=== PATIENT | female | born 1960 | race Caucasian/White ===

== ENCOUNTER → 2016-09-02 | Outpatient (CLI) | payer BC ==
--- NOTE | 2016-09-02 14:55 | RADIOLOGY REPORT (SQ) ---
EXAM DESCRIPTION: CT ABD/PELVIS WITH IV ONLY COMPLETED DATE/TIME: 09/02/2016 2:39 pm REASON FOR STUDY: DEGENERATION OF FIBROIDS D25.9 LEIOMYOMA OF UTERUS, UNSPECIFIED COMPARISON: 02/01/2015 and 07/21/2013. TECHNIQUE: CT scan of the abdomen and pelvis performed using helical scanning technique with dynamic intravenous contrast injection. No oral contrast. Images reviewed with lung, soft tissue, and bone windows. Reconstructed coronal and sagittal MPR images reviewed. Delayed images for evaluation of the urinary system also acquired. All images stored on PACS. All CT scanners at this facility use dose modulation, iterative reconstruction, and/or weight based d osing when appropriate to reduce radiation dose to as low as reasonably achievable (ALARA). [facility]: Dose Right [facility]: CareDose [facility]: Dose Right [facility]: Teradose 4D [facility]: [employer] CONTRAST TYPE AND DOSE: contrast/concentration: Isovue 370.00 mg/ml; Total Contrast Delivered: 68.0 ml; Total Saline Delivered: 55.0 ml RENAL FUNCTION: I 0.1. RADIATION DOSE: Up-to-date CT equipment and radiation dose reduction techniques were employed. CTDIv ol: 3.9 - 4.4 mGy. DLP: 416 mGy-cm.. LIMITATIONS: None. FINDINGS: LOWER CHEST: No significant findings. No nodules or infiltrates. LIVER: Normal size. Stable hemangioma in the right lobe near the dome of the diaphragm. No dilated ducts. SPLEEN: Normal size. No focal lesions. PANCREAS: No masses. No significant calcifications. No adjacent inflammation or peripancreatic fluid collections. Pancreatic duct not dilated. GALLBLADDER: No identified stones by CT criteria. No inflammatory changes to suggest cholecystitis. ADRENAL GLANDS: No significant masses or asymmetry. RIGHT KIDNEY AND URETER: No solid masses. No significant calcifications. No hydronephrosis or hyd roureter. LEFT KIDNEY AND URETER: No solid masses. No significant calcifications. No hydronephrosis or hydr oureter. AORTA AND VESSELS: No aneurysm. No dissection. Renal arteries, SMA, celiac without stenosis. RETROPERITONEUM: No retroperitoneal adenopathy, hemorrhage or masses. BOWEL AND PERITONEAL CAVITY: No masses or inflammatory changes. No free fluid or peritoneal masses. APPENDIX: Normal. PELVIS: Markedly heterogenous and nodular uterus with multiple nodular masses with varying degrees of enhancement. No free fluid. Normal bladder. ABDOMINAL WALL: No masses. No hernias. BONES: No significant or acute findings. OTHER: No other significant finding. IMPRESSION: 1. FIBROID UTERUS. 2. STABLE HEMANGIOMA IN THE LIVER. 3. NO OTHER SIGNIFICANT OR ACUTE FINDING IN THE ABDOMEN OR PELVIS ON CT SCAN WITH IV CONTRAST. TECHNICAL DOCUMENTATION: JOB ID: [id number] Quality ID # 436: Final reports with documentation of one or more dose reduction techniques (e.g., Au tomated exposure control, adjustment of the mA and/or kV according to patient size, use of iterative reconstruction technique) 2010 [employer]- All Rights Reserved
--- NOTE | 2016-09-02 17:24 | RADIOLOGY REPORT (SQ) ---
EXAM DESCRIPTION: CT BONE LENGTH COMPLETED DATE/TIME: 09/02/2016 2:27 pm REASON FOR STUDY: LLD D25.9 LEIOMYOMA OF UTERUS, UNSPECIFIED COMPARISON: None. TECHNIQUE: CT scanogram of the bilateral lower extremities is performed including pelvis to ankles. Measurements of femur, tibia, and entire lower extremities performed by the radiologist and saved to PACS. All CT scanners at this facility use dose modulation, iterative reconstruction, and/or weight based d osing when appropriate to reduce radiation dose to as low as reasonably achievable (ALARA). [facility]: Dose Right [facility]: CareDose [facility]: Dose Right [facility]: Teradose 4D [facility]: [employer] RADIATION DOSE: mGy. LIMITATIONS: None. FINDINGS: RIGHT: FEMUR: 42.1 cm. TIBIA: 33.4 cm. TOTAL RIGHT LOWER EXTREMITY LENGTH: 75.5 cm. LEFT: FEMUR: 41.8 cm. TIBIA: 33.4 cm. TOTAL LEFT LOWER EXTREMITY LENGTH: 75.2 cm. IMPRESSION: LEG LENGTH MEASUREMENTS DETAILED ABOVE. TECHNICAL DOCUMENTATION: JOB ID: [id number] Quality ID # 436: Final reports with documentation of one or more dose reduction techniques (e.g., Au tomated exposure control, adjustment of the mA and/or kV according to patient size, use of iterative reconstruction technique) 2010 [employer]- All Rights Reserved
== END ==
LOC: RAD 13:26
PROVIDERS: ATTEND Specialist
DX: D25.9 Leiomyoma of uterus, unspecified (principal); Q72.819 Congenital shortening of unspecified lower limb
CPT/HCPCS: 74177; 77073; 82565

== ENCOUNTER → 2016-11-20 | Outpatient (CLI) | payer BC ==
[2016-11-20 13:50] LABS: ABSOLUTE BASOPHILS # (AUTO) 0.1 10^3/uL (0.0-0.2); ABSOLUTE EOSINOPHILS # (AUTO) 0.6 10^3/uL (0.0-0.6); ABSOLUTE LYMPHOCYTES (AUTO) 2.1 10^3/uL (0.5-4.7); ABSOLUTE MONOCYTES (AUTO) 0.6 10^3/uL (0.1-1.4); BASOPHILS % (AUTO) 0.9 % (0-2); EOSINOPHILS % (AUTO) 8.6 % (0-6); HEMATOCRIT 43.6 % (36.0-47.0); HEMOGLOBIN 14.5 g/dL (12.0-15.5); HGB HCT DIFFERENCE -0.1; LYMPHOCYTES % (AUTO) 28.4 % (13-45); MEAN CORPUSCULAR HEMOGLOBIN 33.2 pg (27.0-33.4); MEAN CORPUSCULAR HGB CONC 33.2 g/dL (32.0-36.0); MEAN CORPUSCULAR VOLUME 100 fl (80-97); MONOCYTES % (AUTO) 7.8 % (3-13); RED BLOOD COUNT 4.37 10^6/uL (3.72-5.28); RED CELL DISTRIBUTION WIDTH 13.8 % (11.5-14.0); SEGMENTED NEUTROPHILS % (AUTO) 54.3 % (42-78); WHITE BLOOD COUNT 7.4 10^3/uL (4.0-10.5)
[2016-11-20 14:09] LABS: ALANINE AMINOTRANSFERASE 43 U/L (9-52); ALBUMIN 4.8 g/dL (3.5-5.0); ALKALINE PHOSPHATASE 32 U/L (38-126); ANION GAP 15 (5-19); ASPARTATE AMINO TRANSFERASE 27 U/L (14-36); BILIRUBIN,DIRECT 0.5 mg/dL (0.0-0.4); BILIRUBIN,TOTAL 1.6 mg/dL (0.2-1.3); BLOOD UREA NITROGEN 17 mg/dL (7-20); CALCIUM 9.6 mg/dL (8.4-10.2); CARBON DIOXIDE 27 mmol/L (22-30); CHLORIDE 98 mmol/L (98-107); CREATININE RESULT 1.12 mg/dL (0.52-1.25); Direct HDL 72 mg/dL (>40); GLUCOSE 84 mg/dL (75-110); TOTAL PROTEIN 7.4 g/dL (6.3-8.2); TRIGLYCERIDES 98 mg/dL (<150)
[2016-11-20 14:20] LABS: DIRECT LDL 80 mg/dL (<100)
[2016-11-20 14:26] LABS: FREE T3 4.59 pg/mL (2.77-5.27)
[2016-11-20 14:40] LABS: THYROID STIMULATING HORMONE 0.36 uIU/mL (0.47-4.68)
[2016-11-22 06:40] LABS: DEHYDROEPIANDROSTERONE SULFATE 383.4 ug/dL (29.4-220.5)
[2016-11-22 07:19] LABS: ESTRADIOL 49.8 pg/mL (.); FOLLICLE STIMULATING HORMONE 27.9 mIU/mL (.); LUTEINIZING HORMONE 19.2 mIU/mL (.); PROGESTERONE 3.3 ng/mL (.)
[2016-11-22 08:17] LABS: INSULIN-LIKE GROWTH FACTOR I 176 ng/mL (46-172)
[2016-11-22 10:44] LABS: INSULIN 1.9 uIU/mL (2.6-24.9)
[2016-11-23 15:27] LABS: HOMOCYST(E)INE PLASMA 17.3 umol/L (0.0-15.0)
[2016-11-23 15:28] LABS: TESTOSTERONE FREE (DIRECT) 10.2 pg/mL (0.0-4.2)
== END ==
LOC: SC 12:40
PROVIDERS: ATTEND Surgery
DX: I10 Essential (primary) hypertension (principal); E34.9 Endocrine disorder, unspecified; E03.9 Hypothyroidism, unspecified; E78.5 Hyperlipidemia, unspecified; N20.0 Calculus of kidney; Z78.0 Asymptomatic menopausal state; M81.0 Age-related osteoporosis without current pathological fracture; E63.9 Nutritional deficiency, unspecified
CPT/HCPCS: 36415; 80053; 80061; 82306; 82533; 82627; 82670; 82728; 83001; 83002; 83036; 83090; 83525; 83735; 84144; 84270; 84305; 84402; 84403; 84439; 84443; 84481; 85025; 86141; 86304

== ENCOUNTER → 2017-02-12 | Outpatient (CLI) | payer BC ==
--- NOTE | 2017-02-13 12:06 | RADIOLOGY REPORT (SQ) ---
EXAM DESCRIPTION: MRI BREAST BILAT W AND/OR WO COMPLETED DATE/TIME: 02/12/2017 3:32 pm REASON FOR STUDY: LEFT BREAST CA (C50.912) C50.912 MALIGNANT NEOPLASM OF UNSPECIFIED SITE OF LEFT F EMAL Z85.820 PERSONAL HISTORY OF MALIGNANT MELANOMA OF SKIN COMPARISON: Mammography PATHOLOGIC CORRELATION: Prior melanoma. CONTRAST TYPE AND DOSE: 20 mL Prohance. RENAL FUNCTION: GFR 50 TECHNIQUE: MR imaging performed with a dedicated breast coil. Pre contrast T1 and T2 weighted images . Pre contrast and post contrast enhanced T1 weighted images with fat saturation. Subtraction images, 3D thick and thin MIPS, and kinetic analysis performed on an independent workstat ion. (Channel M workstation) Magnet strength: 1.5 T LIMITATIONS: None. FINDINGS: BREAST DENSITY: b. There are scattered areas of fibroglandular density. BACKGROUND PARENCHYMAL ENHANCEMENT:Minimal. RIGHT BREAST: No enhancing or suspicious masses. No clumped, regional/segmental ductal enhancement. Silicon implants. CHEST WALL: Normal tissue planes. No abnormal internal mammary nodes. AXILLA: Normal axillary and retro-pectoral nodes. LEFT BREAST:There is a regional area of enhancement upper outer quadrant 5.3 cm from the nipple corre sponding to the calcifications identified on mammography. No focal mass. CHEST WALL: Normal tissue planes. No abnormal internal mammary nodes. AXILLA: Normal axillary and retro-pectoral nodes. OTHER:Lesions in the liver representing either cysts or hemangiomas. IMPRESSION: Suspicious area of enhancement upper outer quadrant left breast corresponding to the are a of calcifications seen on mammography. Cyst/ hemangiomas of the liver. BIRAD: RIGHT BREAST: 1 Negative. LEFT BREAST: 4 Suspicious. Biopsy should be considered. RECOMMENDATION: RECOMMENDED FOLLOW-UP: Stereotactic guided vacuum assisted core biopsy of the calcif ications. Post clip placement MRI screen shot. TECHNICAL DOCUMENTATION: JOB ID: [id number]- All Rights Reserved
== END ==
LOC: RAD 13:42
PROVIDERS: ATTEND Surgery
DX: C50.412 Malignant neoplasm of upper-outer quadrant of left female breast (principal)
CPT/HCPCS: 82565; A9576; C8906; 77059

== ENCOUNTER 2017-02-28 07:21 | Day surgery (SDC) | payer BC ==
[2017-02-25 13:42] LABS: HEMATOCRIT 42.5 % (36.0-47.0); HEMOGLOBIN 14.4 g/dL (12.0-15.5); MEAN CORPUSCULAR HEMOGLOBIN 33.8 pg (27.0-33.4); MEAN CORPUSCULAR HGB CONC 33.9 g/dL (32.0-36.0); MEAN CORPUSCULAR VOLUME 100 fl (80-97); PLATELET COUNT 318 10^3/uL (150-450); RED BLOOD COUNT 4.27 10^6/uL (3.72-5.28); RED CELL DISTRIBUTION WIDTH 12.9 % (11.5-14.0); WHITE BLOOD COUNT 7.8 10^3/uL (4.0-10.5)
[2017-02-25 14:09] LABS: ANION GAP 8 (5-19); BLOOD UREA NITROGEN 14 mg/dL (7-20); CALCIUM 10.1 mg/dL (8.4-10.2); CARBON DIOXIDE 31 mmol/L (22-30); CHLORIDE 100 mmol/L (98-107); GLUCOSE 102 mg/dL (75-110); POTASSIUM 4.4 mmol/L (3.6-5.0); SODIUM 139.1 mmol/L (137-145)
--- NOTE | 2017-02-25 15:46 | RADIOLOGY REPORT (SQ) ---
EXAM DESCRIPTION: CHEST PA/LATERAL COMPLETED DATE/TIME: 02/25/2017 1:37 pm REASON FOR STUDY: PRE OP COMPARISON: 01/20/2013 EXAM PARAMETERS: NUMBER OF VIEWS: two views TECHNIQUE: Digital Frontal and Lateral radiographic views of the chest acquired. RADIATION DOSE: NA LIMITATIONS: none FINDINGS: LUNGS AND PLEURA: No opacities, masses or pneumothorax. No pleural effusion. MEDIASTINUM AND HILAR STRUCTURES: No masses or contour abnormalities. HEART AND VASCULAR STRUCTURES: Heart normal size. No evidence for failure. BONES: No acute findings. HARDWARE: None in the chest. OTHER: No other significant finding. IMPRESSION: NO SIGNIFICANT RADIOGRAPHIC FINDING IN THE CHEST. TECHNICAL DOCUMENTATION: JOB ID: [id number] [employer]- All Rights Reserved
--- NOTE | 2017-02-25 20:34 | EKG REPORT ---
SEVERITY:- NORMAL ECG - SINUS RHYTHM : Confirmed by: Unique Castro 25-Feb-2017 20:34:07
[~2017-02-28 07:21] MED LIST: CEFAZOLIN 1 GM/D5W RTU 1 GM/50 ML RTUPB IV PRN; LACTATED RINGERS 1000 ML IV PRN; LIDOCAINE 0.5% INJ-PF (5 MG/ML) 50 ML SDV SUBCUT PRN
[2017-02-28] MEDS ORDERED: LIDOCAINE 4% TRANSPARENT DRESSING 5 GM KIT TP PRN (07:24)
[2017-02-28] MEDS ORDERED: METHYLENE BLUE 50 MG/10 ML AMPULE ONE (07:32)
[2017-02-28] MEDS ORDERED: LIDOCAINE 1%/EPINEPHRINE INJ 20 ML VIAL ONE (07:32)
[2017-02-28] MEDS ORDERED: MICROFIBRILLAR COLLAGEN 1 GM PACK ONE (07:34)
[2017-02-28] MEDS ORDERED: MIDAZOLAM 2 MG/2 ML INJ ONE ×2 (07:35→09:17)
[2017-02-28] MEDS ORDERED: DIPHENHYDRAMINE HCL 50 MG/ML VIAL ONE (09:17)
[2017-02-28] MEDS ORDERED: KETOROLAC TROMETHAMINE 60 MG/2 ML SDV ONE (09:17)
[2017-02-28] MEDS ORDERED: DEXAMETHASONE SOD PHOSPHATE INJ 4 MG/1 ML VIAL ONE (09:17)
[2017-02-28] MEDS ORDERED: PROPOFOL INJ 200 MG/20 ML VIAL IV ONE (09:18)
[2017-02-28] MEDS ORDERED: ONDANSETRON HCL INJ/PF 4 MG/2 ML SDV ONE (09:18)
[2017-02-28] MEDS ORDERED: ACETAMINOPHEN 100 ML IV ONE (09:18)
[2017-02-28] MEDS ORDERED: HYDROMORPHONE HCL INJ/PF 2 MG/ML AMPULE ONE (09:18)
[2017-02-28] MEDS ORDERED: ALBUTEROL SULFATE 0.083% NEB 2.5 MG/3 ML AMPUL NEB ONE (09:25)
--- NOTE | 2017-02-28 10:00 | RADIOLOGY REPORT (SQ) ---
EXAM DESCRIPTION: NM LYMPHATICS/LYMPH GLANDS COMPLETED DATE/TIME: 02/28/2017 9:20 am REASON FOR STUDY: LEFT BREAST CANCER C50.912 MALIGNANT NEOPLASM OF UNSPECIFIED SITE OF LEFT FEMAL COMPARISON: MRI bilateral breasts 02/12/2017 Bilateral mammograms 02/05/2017 RADIONUCLIDE AND DOSE: 618 microcuries TC-99mtilmanocept - Lymphoseek. The route of agent administration: Subcutaneous in the skin. TECHNIQUE: The skin of the left breast was prepped in sterile fashion. The radiopharmaceutical was administered in equally divided doses in the periareolar breast. LIMITATIONS: None. FINDINGS: Images demonstrate activity at the injection site. There is migration of activity towards the left axilla. IMPRESSION: ADMINISTRATION OF RADIOPHARMACEUTICAL FOR SENTINEL LYMPH NODE EVALUATION. TECHNICAL DOCUMENTATION: JOB ID: [id number] [employer]- All Rights Reserved
[2017-02-28] MEDS ORDERED: MEPERIDINE HCL/PF INJ 25 MG/1 ML DISP.SYRIN IV PRN (11:19)
[2017-02-28] MEDS ORDERED: DIPHENHYDRAMINE HCL 50 MG/ML VIAL IV PRN (11:19)
[2017-02-28] MEDS ORDERED: OXYCODONE-ACETAMINOPHEN 5-325 MG TABLET PO PRN ×2 (11:19)
[2017-02-28] MEDS ORDERED: FENTANYL CITRATE INJ/PF 100 MCG/2 ML AMPUL IV PRN ×3 (11:19)
[2017-02-28] MEDS ORDERED: PROMETHAZINE HCL INJ 25 MG/1 ML VIAL IV PRN ×2 (11:19)
[2017-02-28] MEDS ORDERED: MORPHINE SULFATE 10 MG/ML INJ IV PRN ×2 (11:19→12:14)
--- NOTE | 2017-02-28 12:13 | PDOC DISCHARGE SUMMARY ---
Discharge Summary (SDC) - Discharge Final Diagnosis: DCIS left breast Date of Surgery: 02/28/17 Discharge Date: 02/28/17 Condition: Good Treatment or Instructions: Patient may shower; no strenuous physical activity; follow-up [facility] in 1 week. May take Tylenol, Motrin, pain medication as directed Referrals: QUYEN CUELLAR MD [Primary Care Provider] - Discharge Diet: As Tolerated Discharge Activity: No Lifting Over 10 Pounds, No Lifting/Push/Pulling Home Care Assistance: None Needed Report the Following to Your Physician Immediately: Shortness of Breath, Increase in Pain, Fever over 101 Degrees
[2017-02-28] MEDS ORDERED: RINGERS SOLUTION,LACTATED 1,000 ML IV PRN (12:14)
[2017-02-28] MEDS ORDERED: ONDANSETRON HCL INJ/PF 4 MG/2 ML SDV IV PRN (12:14)
--- NOTE | 2017-02-28 12:28 | Operative Report ---
Operative Report DATE OF SURGERY: 02/28/17 PREOPERATIVE DIAGNOSIS: Left breast DCIS, high-grade status post core biopsy with clip marker placement;. Bilateral silicone extra pectoral breast implants POSTOPERATIVE DIAGNOSIS: Same OPERATION: 1. [place] lymph node harvest left axilla, level 1,. 2. Ultrasound directed left breast lumpectomy. 3. Interpretation intraoperative specimen radiographs SURGEON: LENNOX GOODWIN ANESTHESIA: GA TISSUE REMOVED OR ALTERED: [place] lymph nodes 2; left breast lumpectomy principal specimen; superior lateral margin shave excision COMPLICATIONS: None ESTIMATED BLOOD LOSS: Scant INTRAOPERATIVE FINDINGS: See below PROCEDURE: The patient was seen in the preop holding area with the left breast was marked. She previously underwent lymphoscintigraphy by Dr. Galicia which demonstrated increased activity in the left axilla. The patient was then taken to the operating room where general anesthesia was induced by Dr. Poole. Left arm abducted. We proceeded with dual mapping technique by injecting approximately 1 cc of full-strength methylene blue intradermally in the left breast 2 o'clock position areolar border; left breast massaged. The left breast axilla chest wall were all prepped and draped in sterile fashion. Surgical plan and surgical timeout conducted We proceeded with sentinel lymph node biopsy first. Using the neoprobe as a guide, we identified an area of hot activity in the low axilla. Skin was anesthetized with 1% lidocaine plain, a small curvilinear incision was made in the low axilla. We proceeded to harvest 2 sentinel lymph nodes. The first was more cephalic , hot but not blue with an in vivo count of 5562; ex vivo count was 12,431. Second lymph node harvested was more caudad, and consisted of a allen more enlarged lymph node. It was blue and hot. It was excised, controlling for lymphatics with clips and cautery. Ex vivo count was 26,528. No in vivo count was performed. Background count was negligible at this point. We felt that the sentinel lymph node harvest portion of this operation was complete. We now rotated the patient into the left lateral decubitus position right side down. We scanned the left breast carefully with intraoperative ultrasonography starting the clip marker placement in the lateral aspect of the left breast, as well as the wide distribution of the heterogeneous group of microcalcifications. I marked on the skin the extent of the pathology is determined by the presence of microcalcifications. Discovered a vertical dimension of approximately 4 cm, and a transverse direction of approximately 3-1 /2 cm. My plan was to excise a saucer shaped portion of breast tissue. Skin was anesthetized with 1% plain lidocaine. Approximately 6 cm curvilinear incision was made approximately 7 cm from the nipple from the 2 to 4 o'clock position of the left breast. I now performed a lumpectomy with electrocautery, using my skin markings as a guide as well as intraoperative ultrasonography real -time confirming acquisition of the microcalcifications as well as hypoechoic nodular areas within the index lesion. No skin was removed during the resection. We took the level of dissection right down to the fibroareolar tissue covering her implant. We did not make direct contact with the implant however. There was no true pseudocapsule to the implant. Once the specimen was removed and the patient, a long silk sutures placed in the lateral position short suture in the superior position. Specimen radiographs real-time performed in the operating room confirmed the specimen contain a plethora of heterogeneous microcalcifications confined to the central aspect of the specimen , with clip marker in the center of the specimen. This interpretation was reviewed with Dr. Rao. For confirmatory purposes, I opted to perform a shave excision of the superior lateral margin of the initial lumpectomy cavity because there was a little nodular tissue here but not gritty. Furthermore there was minimal breast tissue for resection in terms of obtaining additional shave margins in the other patterns. And in terms of the deep posterior margin, there was none as I was looking directly at areole or tissue above the capsule. The small superior lateral margin approximately 2.5 x 2.5 cm removed in the left breast, oriented with a short suture in the superior position and a long suture in the lateral position. It was imaged in the operating room with a specimen radiograph machine and demonstrated no microcalcifications to our satisfaction. It is to be noted that prior to this operation, Jalen Hart, Claudia and Luke, radiologist and pathologists, conferenced about this specific patient, our operative approach, and the surgical specimen acquisition and interpretation. We agreed that a dominant lumpectomy for permanent margin interpretation would be the appropriate approach so this was executed as planned. The additional superior lateral shave margin was the choice of the surgeon. All 4 specimens, the sentinel lymph nodes 2, the lumpectomy specimen and the shave margin, were all sent to pathology for permanent analysis. Hemostasis was checked. Wounds closed with 3-0 Vicryl and Dermabond glue. Of note skin flaps on the lumpectomy specimen appeared viable although they were quite thin. Patient tolerated procedure well, extubated, taken to the recovery room in stable condition.
[2017-02-28] MEDS ORDERED: GLYCOPYRROLATE INJ 0.4 MG/2 ML VIAL ONE (14:21)
[2017-02-28] MEDS ORDERED: SUCCINYLCHOLINE CHLORIDE INJ 200 MG/10 ML VIAL ONE (14:21)
[2017-02-28] MEDS ORDERED: METOCLOPRAMIDE HCL INJ/PF 10 MG/2 ML SDV ONE (14:21)
[2017-02-28 14:57] VITALS: BP 115/60
--- NOTE | 2017-02-28 17:48 | RADIOLOGY REPORT (SQ) ---
EXAM DESCRIPTION: BREAST SPECIMEN COMPLETED DATE/TIME: 02/28/2017 12:29 pm REASON FOR STUDY: BREAST SPECIMEN C50.912 MALIGNANT NEOPLASM OF UNSPECIFIED SITE OF LEFT FEMAL COMPARISON: None. TECHNIQUE: Specimen radiograph from breast procedure performed in the operating room. LIMITATIONS: None. FINDINGS: Specimen radiograph from breast procedure performed in the operating room. Please see procedure note for details and final pathology. IMPRESSION: Specimen radiograph. TECHNICAL DOCUMENTATION: JOB ID: [id number]
== END 2017-02-28 15:00 | disposition home or self-care (01) ==
LOC: OROUT 07:21
PROVIDERS: ATTEND Surgery
PROC: 07B60ZX Excision of Left Axillary Lymphatic, Open Approach, Diagnostic (ICD-10-PCS; 2017-02-28)
PROC: 0HBU0ZZ Excision of Left Breast, Open Approach (ICD-10-PCS; principal; 2017-02-28 10:30)
DX: C50.812 Malignant neoplasm of overlapping sites of left female breast (principal); I10 Essential (primary) hypertension; E03.9 Hypothyroidism, unspecified; Z85.820 Personal history of malignant melanoma of skin; Z79.82 Long term (current) use of aspirin; Z79.899 Other long term (current) drug therapy; Z98.82 Breast implant status
CPT/HCPCS: 93005; 36415 ×2; 84132; 85027; 80048; 88342 ×2; 88341 ×2; 88307 ×2; 71046; 78195; 93010; 76098; 19301; 38500; A9520; J2250; J0690; J1100; J1200; J1885; J3490; J2765; J1170; J0330; J2405; J2704; J0131; Q9968; 1610

== ENCOUNTER 2017-04-07 11:08 | Day surgery (SDC) | payer BC ==
[2017-04-07] MEDS ORDERED: MIDAZOLAM 2 MG/2 ML INJ ONE (13:21)
[2017-04-07] MEDS ORDERED: ONDANSETRON HCL INJ/PF 4 MG/2 ML SDV ONE (13:22)
[2017-04-07 14:34] VITALS: BP 126/61
--- NOTE | 2017-04-07 14:50 | Operative Report ---
Operative Report DATE OF SURGERY: 04/07/17 Operative Report: The risks, benefits and alternatives of the procedure including risks of bleeding, perforation requiring surgery are explained to the patient in detail and informed consent was obtained. Patient is taken back to the endoscopy suite and placed in the left, lateral decubital position. Timeout was called. Propofol medications administered. A rectal examination is done which did not reveal any masses, tears or fissures. An Olympus videoscope was inserted into the patient's rectum. The scope was then carefully advanced all the way to the cecum. The cecum was identified by the usual anatomical landmarks including the ileocecal valve as well as the appendiceal office. Photodocumentation is obtained. Scope was then sequentially pulled back via the rest segments of the colon including the ascending colon, hepatic flexure, transverse colon, splenic flexure, descending colon finding to the rectosigmoid portions of the colon. Retroflexion maneuvers performed. PREOPERATIVE DIAGNOSIS: Colorectal cancer screening POSTOPERATIVE DIAGNOSIS: Small sessile polyp status post removal with biopsy forceps OPERATION: Colonoscopy with biopsy SURGEON: CLAY RICHARD ANESTHESIA: LMAC TISSUE REMOVED OR ALTERED: As noted above. COMPLICATIONS: None. ESTIMATED BLOOD LOSS: None. INTRAOPERATIVE FINDINGS: As noted above. PROCEDURE: Patient tolerated procedure well. No immediate postprocedure complications are noted. Patient discharged in good condition. Discharge date 04/07/2017. Discharge diet: Regular. Discharge activity: Regular. 2-3 week follow-up to discuss findings. Patient is instructed call the office or proceed to the emergency room should there be any further problems or questions. We will wait on pathology. We will need surveillance in 5 years.
== END 2017-04-07 15:00 | disposition home or self-care (01) ==
LOC: END 11:08
PROVIDERS: ATTEND Internal Medicine Gastroenterology
PROC: 0DBN8ZX Excision of Sigmoid Colon, Via Natural or Artificial Opening Endoscopic, Diagnostic (ICD-10-PCS; principal; 2017-04-07 14:30)
DX: Z12.11 Encounter for screening for malignant neoplasm of colon (principal); K63.5 Polyp of colon; K63.89 Other specified diseases of intestine; I10 Essential (primary) hypertension; Z85.820 Personal history of malignant melanoma of skin; Z85.3 Personal history of malignant neoplasm of breast
CPT/HCPCS: 45380; 88305 ×2; J2250; J2405; 812

== ENCOUNTER → 2017-09-08 | Outpatient (CLI) | payer BC ==
[2017-09-08 13:55] LABS: ABSOLUTE LYMPHOCYTES (AUTO) 1.4 10^3/uL (0.5-4.7); ABSOLUTE MONOCYTES (AUTO) 0.4 10^3/uL (0.1-1.4); ABSOLUTE NEUT (AUTO) 6.2 10^3/uL (1.7-8.2); BASOPHILS % (AUTO) 0.3 % (0-2); EOSINOPHILS % (AUTO) 0.1 % (0-6); HEMATOCRIT 42.8 % (36.0-47.0); HEMOGLOBIN 14.3 g/dL (12.0-15.5); LYMPHOCYTES % (AUTO) 17.3 % (13-45); MEAN CORPUSCULAR HEMOGLOBIN 31.9 pg (27.0-33.4); MEAN CORPUSCULAR HGB CONC 33.5 g/dL (32.0-36.0); MEAN CORPUSCULAR VOLUME 95 fl (80-97); MONOCYTES % (AUTO) 5.2 % (3-13); PLATELET COUNT 300 10^3/uL (150-450); RED CELL DISTRIBUTION WIDTH 13.2 % (11.5-14.0); SEGMENTED NEUTROPHILS % (AUTO) 77.1 % (42-78); TOTAL CELLS COUNTED % (AUTO) 100 %
[2017-09-08 14:28] LABS: ALANINE AMINOTRANSFERASE 26 U/L (9-52); ALBUMIN 4.5 g/dL (3.5-5.0); ALKALINE PHOSPHATASE 39 U/L (38-126); ANION GAP 10 (5-19); ASPARTATE AMINO TRANSFERASE 19 U/L (14-36); BILIRUBIN,DIRECT 0.3 mg/dL (0.0-0.4); BILIRUBIN,TOTAL 0.9 mg/dL (0.2-1.3); BLOOD UREA NITROGEN 21 mg/dL (7-20); CARBON DIOXIDE 28 mmol/L (22-30); CHLORIDE 102 mmol/L (98-107); CHOLESTEROL 203.87 mg/dL (0-200); GLUCOSE 99 mg/dL (75-110); POTASSIUM 4.4 mmol/L (3.6-5.0); SODIUM 139.9 mmol/L (137-145); TOTAL PROTEIN 7.4 g/dL (6.3-8.2); TRIGLYCERIDES 38 mg/dL (<150)
[2017-09-08 14:37] LABS: DIRECT LDL 117 mg/dL (<100)
[2017-09-08 14:42] LABS: FREE T3 5.83 pg/mL (2.77-5.27); FREE T4 (FREE THYROXINE) 1.24 ng/dL (0.78-2.19)
[2017-09-08 14:55] LABS: THYROID STIMULATING HORMONE 0.03 uIU/mL (0.47-4.68)
[2017-09-08 14:57] LABS: CARCINOEMBRYONIC ANTIGEN 2.3 ng/mL (<3.0); HOMOCYSTEINE 8.75 umol/L (4.7-12.6)
[2017-09-08 15:08] LABS: T3 UPTAKE 38.7 %; THYROXINE T4 6.75 ug/dL (5.53-11.0)
[2017-09-09 08:52] LABS: CANCER ANTIGEN (CA) 125 13.1 U/mL (0.0-38.1); DEHYDROEPIANDROSTERONE SULFATE 67.2 ug/dL (29.4-220.5)
[2017-09-09 08:53] LABS: INSULIN-LIKE GROWTH FACTOR I 172 ng/mL (46-172)
[2017-09-09 13:08] LABS: TESTOSTERONE FREE (DIRECT) 1.8 pg/mL (0.0-4.2)
== END ==
LOC: OD 12:54
PROVIDERS: ATTEND Surgery
DX: C50.919 Malignant neoplasm of unspecified site of unspecified female breast (principal); I10 Essential (primary) hypertension; N20.0 Calculus of kidney; J45.909 Unspecified asthma, uncomplicated; E78.5 Hyperlipidemia, unspecified; R79.89 Other specified abnormal findings of blood chemistry; Z78.0 Asymptomatic menopausal state
CPT/HCPCS: 36415; 80053; 80061; 82306; 82378; 82607; 82627; 82670; 82728; 83036; 83090; 83735; 84144; 84305; 84402; 84403; 84436; 84439; 84443; 84479; 84481; 85025; 86140; 86141; 86304

== ENCOUNTER → 2017-09-29 | Outpatient (CLI) | payer BC ==
--- NOTE | 2017-09-29 12:41 | RADIOLOGY REPORT (SQ) ---
EXAM DESCRIPTION: CHEST 2 VIEWS COMPLETED DATE/TIME: 09/29/2017 12:33 pm REASON FOR STUDY: UNSPECIFIED ASTHMA, UNCOMPLICATED/ESSENTIAL HTN COMPARISON: 01/20/2013 EXAM PARAMETERS: NUMBER OF VIEWS: two views TECHNIQUE: Digital Frontal and Lateral radiographic views of the chest acquired. RADIATION DOSE: NA LIMITATIONS: none FINDINGS: LUNGS AND PLEURA: No opacities, masses or pneumothorax. No pleural effusion. MEDIASTINUM AND HILAR STRUCTURES: No masses or contour abnormalities. HEART AND VASCULAR STRUCTURES: Heart normal size. No evidence for failure. BONES: No acute findings. HARDWARE: None in the chest. OTHER: No other significant finding. IMPRESSION: NO ACUTE RADIOGRAPHIC FINDING IN THE CHEST. TECHNICAL DOCUMENTATION: JOB ID: [id number] [employer]- All Rights Reserved Reading location - IP/workstation name: [email or web address]
--- NOTE | 2017-09-29 22:57 | EKG REPORT ---
SEVERITY:- ABNORMAL ECG - SINUS RHYTHM LEFT ATRIAL ABNORMALITY BORDERLINE T ABNORMALITIES, DIFFUSE LEADS : Confirmed by: Unique Castro 29-Sep-2017 22:56:39
== END ==
LOC: RAD 12:04
PROVIDERS: ATTEND Surgery
DX: C50.919 Malignant neoplasm of unspecified site of unspecified female breast (principal); I10 Essential (primary) hypertension; E78.5 Hyperlipidemia, unspecified; J45.909 Unspecified asthma, uncomplicated
CPT/HCPCS: 71046; 93005; 93010

== ENCOUNTER → 2017-12-03 | Outpatient (CLI) | payer BC ==
[2017-12-04 08:02] LABS: ABSOLUTE BASOPHILS # (AUTO) 0.1 10^3/uL (0.0-0.2); ABSOLUTE EOSINOPHILS # (AUTO) 0.4 10^3/uL (0.0-0.6); ABSOLUTE LYMPHOCYTES (AUTO) 2.4 10^3/uL (0.5-4.7); ABSOLUTE MONOCYTES (AUTO) 0.5 10^3/uL (0.1-1.4); ABSOLUTE NEUT (AUTO) 2.3 10^3/uL (1.7-8.2); BASOPHILS % (AUTO) 0.9 % (0-2); EOSINOPHILS % (AUTO) 7.1 % (0-6); HEMATOCRIT 40.9 % (36.0-47.0); HEMOGLOBIN 13.9 g/dL (12.0-15.5); MEAN CORPUSCULAR HEMOGLOBIN 32.6 pg (27.0-33.4); MEAN CORPUSCULAR VOLUME 96 fl (80-97); PLATELET COUNT 261 10^3/uL (150-450); RED BLOOD COUNT 4.27 10^6/uL (3.72-5.28); RED CELL DISTRIBUTION WIDTH 13.3 % (11.5-14.0); TOTAL CELLS COUNTED % (AUTO) 100 %; WHITE BLOOD COUNT 5.7 10^3/uL (4.0-10.5)
[2017-12-04 08:11] LABS: INTERNATIONAL RATION (INR) 0.96; PROTHROMBIN TIME 13.3 SEC (11.4-15.4)
[2017-12-04 08:12] LABS: PARTIAL THROMBOPLASTIN TIME 32.1 SEC (23.5-35.8)
[2017-12-04 08:26] LABS: ALANINE AMINOTRANSFERASE 23 U/L (9-52); ALBUMIN 3.9 g/dL (3.5-5.0); ALKALINE PHOSPHATASE 36 U/L (38-126); ANION GAP 7 (5-19); ASPARTATE AMINO TRANSFERASE 18 U/L (14-36); BILIRUBIN,DIRECT 0.2 mg/dL (0.0-0.4); BILIRUBIN,TOTAL 0.9 mg/dL (0.2-1.3); BLOOD UREA NITROGEN 18 mg/dL (7-20); CALCIUM 9.2 mg/dL (8.4-10.2); CARBON DIOXIDE 30 mmol/L (22-30); CHLORIDE 102 mmol/L (98-107); CHOLESTEROL 158.86 mg/dL (0-200); GLUCOSE 87 mg/dL (75-110); SODIUM 138.5 mmol/L (137-145); TOTAL PROTEIN 6.3 g/dL (6.3-8.2); TRIGLYCERIDES 53 mg/dL (<150)
[2017-12-04 08:35] LABS: DIRECT LDL 86 mg/dL (<100)
[2017-12-04 08:41] LABS: C-REACTIVE PROTEIN < 5.0 mg/L (<10.0)
[2017-12-04 08:48] LABS: FREE T3 4.33 pg/mL (2.77-5.27); FREE T4 (FREE THYROXINE) 0.99 ng/dL (0.78-2.19)
[2017-12-04 09:01] LABS: THYROID STIMULATING HORMONE 0.52 uIU/mL (0.47-4.68)
[2017-12-06 17:17] LABS: TESTOSTERONE FREE (DIRECT) 2.9 pg/mL (0.0-4.2)
== END ==
LOC: OD 13:57
PROVIDERS: ATTEND Surgery
DX: C50.919 Malignant neoplasm of unspecified site of unspecified female breast (principal); D05.12 Intraductal carcinoma in situ of left breast; Z85.820 Personal history of malignant melanoma of skin; I10 Essential (primary) hypertension; Z98.82 Breast implant status
CPT/HCPCS: 36415; 80053; 80061; 82306; 82627; 82670; 83036; 84144; 84305; 84402; 84403; 84439; 84443; 84481; 85025; 85610; 85730; 86140

== ENCOUNTER → 2018-01-07 | Outpatient (CLI) | payer BC ==
--- NOTE | 2018-01-07 15:40 | RADIOLOGY REPORT (SQ) ---
EXAM DESCRIPTION: CT ABD/PELVIS COMBO COMPLETED DATE/TIME: 01/07/2018 3:20 pm REASON FOR STUDY: N20.0 CALCULUS OF KIDNEY N20.0 CALCULUS OF KIDNEY COMPARISON: CT abdomen pelvis 07/21/2013, 01/28/2014, 02/01/2015, 09/02/2016 TECHNIQUE: CT scan of the abdomen and pelvis performed with and without intravenous contrast, and wi thout oral contrast. Contrasted imaging performed helical scanning technique and dynamic intravenous contrast injection. Images reviewed with lung, soft tissue, and bone windows. Reconstructed coronal a nd sagittal MPR images reviewed. Delayed images for evaluation of the urinary system also acquired. A ll images stored on PACS. All CT scanners at this facility use dose modulation, iterative reconstruction, and/or weight based d osing when appropriate to reduce radiation dose to as low as reasonably achievable (ALARA). [facility]: Dose Right [facility]: CareDose [facility]: Dose Right [facility]: Teradose 4D [facility]: [facility] CONTRAST TYPE AND DOSE: contrast/concentration: Isovue 350.00 mg/ml; Total Contrast Delivered: 66.0 ml; Total Saline Delivered: 65.0 ml RENAL FUNCTION: Creatinine 1.3 RADIATION DOSE: CT Rad equipment meets quality standard of care and radiation dose reduction techniq ues were employed. CTDIvol: 9.0 - 9.0 mGy. DLP: 1360 mGy-cm. . LIMITATIONS: None. FINDINGS: NON-CONTRASTED IMAGING: Along the left lower pole calices, axial images 36-38, multiple ti ny intrarenal nonobstructive calculi are present less than 4 mm in size. These are unchanged from CT 02/01/2015. Patient had a lower pole staghorn calculus in this area on 01/28/2014 CT. No left ureteral stones are identified. No right-sided urinary stones. No bladder calculi. POST-CONTRASTED IMAGING: LOWER CHEST: Bilateral mastectomies with implants. LIVER: Normal size. Stable benign 2 cm hemangioma sub- diaphragmatic surface right lobe liver, 1 cm hemangioma posterior right lobe liver. No dilated ducts. SPLEEN: Normal size. No focal lesions. PANCREAS: No masses. No significant calcifications. No adjacent inflammation or peripancreatic fluid collections. Pancreatic duct not dilated. GALLBLADDER: 4 mm gallbladder polyp versus noncalcified stone, coronal image 23. Right upper quadran t ultrasound recommended for further characterization ADRENAL GLANDS: No significant masses or asymmetry. RIGHT KIDNEY AND URETER: No solid masses. No significant calcifications. No hydronephrosis or hyd roureter. LEFT KIDNEY AND URETER: No solid masses. Calcifications left lower pole, less than 4 mm in size, no nobstructive. No left ureteral stones. No hydronephrosis or hydroureter. AORTA AND VESSELS: No aneurysm. No dissection. Renal arteries, SMA, celiac without stenosis. RETROPERITONEUM: No retroperitoneal adenopathy, hemorrhage or masses. BOWEL AND PERITONEAL CAVITY: No masses or inflammatory changes. No free fluid or peritoneal masses. APPENDIX: Normal. PELVIS: No mass. No free fluid. Normal bladder. Normal size female pelvic organs with small 1 to 2 cm fibroids in the uterus ABDOMINAL WALL: No masses. No hernias. BONES: Degenerative disc changes at L2-3 OTHER: No other significant finding. IMPRESSION: Left-sided lower pole intrarenal nonobstructive less than 4 mm stones. No left-sided ur eteral calculi. Incidental finding of a 4 mm filling defect in the gallbladder, could represent a small polyp. Right upper quadrant ultrasound recommended. TECHNICAL DOCUMENTATION: JOB ID: [id number] Quality ID # [id number]: Final reports with documentation of one or more dose reduction techniques (e.g., Au tomated exposure control, adjustment of the mA and/or kV according to patient size, use of iterative reconstruction technique) 2010 [employer]- All Rights Reserved Reading location - IP/workstation name: [email or web address]
== END ==
LOC: RAD 16:06
PROVIDERS: ATTEND Physician Assistant
DX: N20.0 Calculus of kidney (principal)
CPT/HCPCS: 74178; 82565

== ENCOUNTER 2018-06-01 10:34 | Day surgery (SDC) | payer BC ==
[~2018-06-01 10:34] MED LIST changes: -CEFAZOLIN 1 GM/D5W RTU 1 GM/50 ML RTUPB IV PRN; -LACTATED RINGERS 1000 ML IV PRN; -LIDOCAINE 0.5% INJ-PF (5 MG/ML) 50 ML SDV SUBCUT PRN; +PROPOFOL INJ 200 MG/20 ML VIAL IV ONE
[2018-06-01] MEDS ORDERED: MIDAZOLAM 2 MG/2 ML INJ ONE (11:41)
[2018-06-01] MEDS ORDERED: PROPOFOL INJ 200 MG/20 ML VIAL IV ONE (12:22)
--- NOTE | 2018-06-01 12:41 | Operative Report ---
Operative Report DATE OF SURGERY: 06/01/18 Operative Report: The risks, benefits and alternatives of the procedure including the risk of bleeding, perforation requiring surgery have been explained to the patient in detail and informed consent has been obtained. Patient was taken back to the endoscopy suite and placed in the left, lateral decubital position. Timeout was called. Propofol medication is administered. A rectal examination is done which did not reveal any masses, tears or fissures. An Olympus videoscope was introduced into the patient's rectum. Upon insufflation the scope was then carefully advanced all the way to the cecum. The cecum was identified by the usual anatomical landmarks including the ileocecal valve as well as the appendiceal office. Photodocumentation is obtained. The prep was good. From that point the scope was then sequentially pulled back through the various segments of the colon obtaining good luminal and circumferential views. The ascending colon, hepatic flexure, transverse colon, splenic flexure, descending colon including the rectosigmoid portions are visualized. Retroflexion maneuver was performed. PREOPERATIVE DIAGNOSIS: Personal history of polyp POSTOPERATIVE DIAGNOSIS: Small sigmoid polyp removed via snare polypectomy and retrieved OPERATION: Colonoscopy with snare polypectomy SURGEON: CLAY RICHARD ANESTHESIA: LMAC TISSUE REMOVED OR ALTERED: As noted above. COMPLICATIONS: None. ESTIMATED BLOOD LOSS: None. INTRAOPERATIVE FINDINGS: As noted above. PROCEDURE: Patient tolerated the procedure well. No immediate postprocedure complications are noted. Patient is discharged in good condition. Discharge date 06/01/2018. Discharge diet: Regular. Discharge activity: Regular. 2-3-week follow-up to discuss findings. Patient is instructed to call the office or proceed to the emergency room should there be any further problems or questions. Wait on the pathology. 3-5-year surveillance colonoscopy.
[2018-06-01 13:28] VITALS: BP 115/60
== END 2018-06-01 13:00 | disposition home or self-care (01) ==
LOC: END 10:34
PROVIDERS: ATTEND Internal Medicine Gastroenterology
PROC: 0DBN8ZX Excision of Sigmoid Colon, Via Natural or Artificial Opening Endoscopic, Diagnostic (ICD-10-PCS; principal; 2018-06-01 15:00)
DX: Z12.11 Encounter for screening for malignant neoplasm of colon (principal); K63.5 Polyp of colon; Z86.010 Personal history of colon polyps
CPT/HCPCS: 45385; 811; 88305; J2250; J2704

== ENCOUNTER → 2018-09-02 | Outpatient (CLI) | payer BC ==
[~2018-09-02] MED LIST changes: +ALBUTEROL SULFATE 0.083% NEB 2.5 MG/3 ML AMPUL NEB ONE; -PROPOFOL INJ 200 MG/20 ML VIAL IV ONE
--- NOTE | 2018-09-03 15:26 | Pulmonary Function Test ---
Pulmonary Function Test Date of Procedure:: 09/02/18 INDICATION:: Dyspnea Referring Provider: JERROD Armando Hourly Associate: Clover Cook [employer] - Report Spirometry: Spirometry: pre-FVC: 2.91 L 93% post-FVC 2.94 L 94% pre-FEV:1[1.80 L 72%] post-FEV1; 2.00 L 80% pre-FEV1/FVC % 62 post-FEV1/FVC% 68 predicted 83 [id number]% 0.82 L percent [id number]% 1.16 L 43% Lung Volume: Total lung capacity: 4.29 L 84% Vital capacity: 2.91 L 93% Inspiratory capacity: 2.51 L FRC N2: 1.78 L 60% ERV: 0.23 L RV: 1.38 L 72% RV/TLC %: 32 predicted 38 Diffusion Capactity: DLCO: 20.2 102% DLCO/VA: 4.33 112% Impression: Moderate obstructive ventilatory defect good response to bronchodilator therapy. Strict ventilatory defect. No hyperinflation or air trapping. Normal diff usion capacity.
== END ==
LOC: RT 13:44
PROVIDERS: ATTEND Physician Assistant
DX: J45.30 Mild persistent asthma, uncomplicated (principal); I10 Essential (primary) hypertension; R06.09 Other forms of dyspnea
CPT/HCPCS: 94060; 94727; 94729

== ENCOUNTER → 2018-09-09 | Outpatient (CLI) | payer BC ==
--- NOTE | 2018-09-09 22:42 | XCELERA REPORT ---
[address] [address] Transthoracic Echocardiogram Report Name: RADHA POTTER Age: 58 yrs Gender: Female : 1960 Patient Status: Outpatient Patient Location: Study Date: 09/09/2018 01:14 PM Height: 65 in Weight: 140 lb BSA: 1.7 m2 Procedure: A two-dimensional transthoracic echocardiogram with color flow and Doppler was performed. The study was technically difficult with many images being suboptimal in quality. Reason For Study: History: AORTIC STENOSI. Ordering Physician: MALIHA MUIR Performed By: Kassandra Calzada Interpretation Summary The left ventricle is normal in size. There is normal left ventricular wall thickness. LV EF is 65% The left ventricular ejection fraction is within normal limits. Doppler measurements suggest normal left ventricular diastolic function The left ventricular wall motion is normal. No ASD , VSD,or PFO seen. The right ventricle is normal in size and function. The right atrium is normal. The left atrial size is normal. There is no evidence of mitral valve prolapse. There is no vegetation seen on the mitral valve. There is no mitral valve stenosis. There is no mitral regurgitation noted. There is no aortic valvular vegetation. There is no aortic valve stenosis There is no LVOT obstruction. Minimal aortoc sclerosis without stenosis. No aortic regurgitation is present. There is no tricuspid stenosis. There is a trace amount of tricuspid regurgitation Unable to calculate RVSP due to insufficient TR jet. There is no pulmonic valvular stenosis. There is a trace amount of pulmonic regurgitation The aortic root is normal size. The inferior vena cava appeared normal and decreased > 50% with respiration (RAP 5-10 mmHg) There is no pericardial effusion. MMode/2D Measurements & Calculations RVDd: 2.6 cm LVIDd: 4.7 cm FS: 32.9 % Ao root diam: 2.5 cm IVSd: 0.66 cm LVIDs: 3.2 cm EDV(Teich): 103.6 ml Ao root area: 4.9 cm2 LVPWd: 0.84 cm ESV(Teich): 40.0 ml EF(Teich): 61.4 % Doppler Measurements & Calculations MV E max carolyn: MV dec slope: Ao V2 max: LV V1 max P.7 cm/sec 545.2 cm/sec2 130.2 cm/sec 4.0 mmHg MV A max carolyn: MV dec time: 0.16 secAo max PG: LV V1 max: 81.9 cm/sec 6.8 mmHg 99.7 cm/sec MV E/A: 1.1 PA V2 max: PI end-d carolyn: 79.6 cm/sec 83.8 cm/sec PA max P.5 mmHg Left Ventricle The left ventricle is normal in size. There is normal left ventricular wall thickness. LV EF is 65%. The left ventricular ejection fraction is within normal limits. Doppler measurements suggest normal left ventricular diastolic function. The left ventricular wall motion is normal. No ASD , VSD,or PFO seen. Right Ventricle The right ventricle is normal in size and function. Atria The right atrium is normal. The left atrial size is normal. Mitral Valve There is no evidence of mitral valve prolapse. There is no vegetation seen on the mitral valve. There is no mitral valve stenosis. There is no mitral regurgitation noted. Aortic Valve There is no aortic valvular vegetation. There is no aortic valve stenosis. There is no LVOT obstruction. Minimal aortoc sclerosis without stenosis. No aortic regurgitation is present. Tricuspid Valve There is no tricuspid stenosis. There is a trace amount of tricuspid regurgitation. Unable to calculate RVSP due to insufficient TR jet. Pulmonic Valve There is no pulmonic valvular stenosis. There is a trace amount of pulmonic regurgitation. Great Vessels The aortic root is normal size. The inferior vena cava appeared normal and decreased > 50% with respiration (RAP 5-10 mmHg). Effusions There is no pericardial effusion. : MALIHA MUIR > Katherine Gardiner
== END ==
LOC: SP 12:53
PROVIDERS: ATTEND Physician Assistant
DX: J45.30 Mild persistent asthma, uncomplicated (principal); I35.0 Nonrheumatic aortic (valve) stenosis
CPT/HCPCS: 93306

== ENCOUNTER → 2018-11-25 | Outpatient (CLI) | payer BC ==
[2018-11-25 15:12] LABS: ALBUMIN 4.4 g/dL (3.5-5.0); ALKALINE PHOSPHATASE 37 U/L (38-126); ANION GAP 8 (5-19); ASPARTATE AMINO TRANSFERASE 33 U/L (14-36); BILIRUBIN,DIRECT 0.1 mg/dL (0.0-0.4); BLOOD UREA NITROGEN 19 mg/dL (7-20); CALCIUM 9.8 mg/dL (8.4-10.2); CARBON DIOXIDE 30 mmol/L (22-30); CHLORIDE 97 mmol/L (98-107); CHOLESTEROL 190.78 mg/dL (0-200); GLUCOSE 98 mg/dL (75-110); POTASSIUM 4.3 mmol/L (3.6-5.0); TOTAL PROTEIN 7.1 g/dL (6.3-8.2); TRIGLYCERIDES 53 mg/dL (<150)
[2018-11-25 15:16] LABS: HOMOCYSTEINE 14.83 umol/L (4.7-12.6)
[2018-11-25 15:20] LABS: DIRECT LDL 120 mg/dL (<100)
[2018-11-25 15:25] LABS: FREE T3 5.23 pg/mL (2.77-5.27); FREE T4 (FREE THYROXINE) 1.13 ng/dL (0.78-2.19)
[2018-11-25 15:26] LABS: C-REACTIVE PROTEIN < 5.0 mg/L (<10.0)
[2018-11-25 15:38] LABS: THYROID STIMULATING HORMONE 0.08 uIU/mL (0.47-4.68)
== END ==
LOC: OD 13:38
PROVIDERS: ATTEND Physician Assistant
DX: E78.2 Mixed hyperlipidemia (principal); N95.1 Menopausal and female climacteric states; E55.9 Vitamin D deficiency, unspecified; R94.5 Abnormal results of liver function studies; Z79.899 Other long term (current) drug therapy
CPT/HCPCS: 36415; 80053; 80061; 82172; 82306; 82627; 82670; 83036; 83090; 83525; 84144; 84305; 84402; 84403; 84439; 84443; 84481; 86140

== ENCOUNTER → 2018-12-10 | Outpatient (CLI) | payer BC ==
[2018-12-10 16:53] LABS: HEMOGLOBIN 14.5 g/dL (12.0-15.5); MEAN CORPUSCULAR HEMOGLOBIN 33.9 pg (27.0-33.4); MEAN CORPUSCULAR HGB CONC 34.5 g/dL (32.0-36.0); MEAN CORPUSCULAR VOLUME 98 fl (80-97); PLATELET COUNT 300 10^3/uL (150-450); RED BLOOD COUNT 4.27 10^6/uL (3.72-5.28); RED CELL DISTRIBUTION WIDTH 13.7 % (11.5-14.0); WHITE BLOOD COUNT 6.6 10^3/uL (4.0-10.5)
== END ==
LOC: OD 15:38
PROVIDERS: ATTEND Internal Medicine Cardiovascular Disease
DX: E78.00 Pure hypercholesterolemia, unspecified (principal); R53.83 Other fatigue; Z11.3 Encounter for screening for infections with a predominantly sexual mode of transmission
CPT/HCPCS: 36415; 82627; 83695; 84305; 86701

== ENCOUNTER → 2019-04-13 | Outpatient (CLI) | payer BC ==
[2019-04-13 15:47] LABS: ABSOLUTE EOSINOPHILS # (AUTO) 0.4 10^3/uL (0.0-0.6); ABSOLUTE LYMPHOCYTES (AUTO) 1.8 10^3/uL (0.5-4.7); ABSOLUTE MONOCYTES (AUTO) 0.5 10^3/uL (0.1-1.4); ABSOLUTE NEUT (AUTO) 2.7 10^3/uL (1.7-8.2); BASOPHILS % (AUTO) 0.9 % (0-2); EOSINOPHILS % (AUTO) 7.2 % (0-6); HEMATOCRIT 41.3 % (36.0-47.0); HEMOGLOBIN 14.5 g/dL (12.0-15.5); LYMPHOCYTES % (AUTO) 33.8 % (13-45); MEAN CORPUSCULAR HEMOGLOBIN 34.7 pg (27.0-33.4); MEAN CORPUSCULAR HGB CONC 35.2 g/dL (32.0-36.0); MEAN CORPUSCULAR VOLUME 99 fl (80-97); MONOCYTES % (AUTO) 8.6 % (3-13); PLATELET COUNT 227 10^3/uL (150-450); RED BLOOD COUNT 4.18 10^6/uL (3.72-5.28); RED CELL DISTRIBUTION WIDTH 14.1 % (11.5-14.0); SEGMENTED NEUTROPHILS % (AUTO) 49.5 % (42-78); TOTAL CELLS COUNTED % (AUTO) 100 %; WHITE BLOOD COUNT 5.4 10^3/uL (4.0-10.5)
[2019-04-13 16:09] LABS: ALBUMIN 4.4 g/dL (3.5-5.0); ALKALINE PHOSPHATASE 34 U/L (38-126); ANION GAP 8 (5-19); ASPARTATE AMINO TRANSFERASE 31 U/L (14-36); BILIRUBIN,DIRECT 0.1 mg/dL (0.0-0.4); BILIRUBIN,TOTAL 1.6 mg/dL (0.2-1.3); BLOOD UREA NITROGEN 18 mg/dL (7-20); CALCIUM 9.7 mg/dL (8.4-10.2); CARBON DIOXIDE 28 mmol/L (22-30); CHLORIDE 98 mmol/L (98-107); CHOLESTEROL 194.99 mg/dL (0-200); GLUCOSE 104 mg/dL (75-110); POTASSIUM 4.5 mmol/L (3.6-5.0); TRIGLYCERIDES 91 mg/dL (<150)
[2019-04-13 16:17] LABS: DIRECT LDL 138 mg/dL (<100)
[2019-04-13 16:22] LABS: FREE T3 3.79 pg/mL (2.77-5.27)
[2019-04-13 16:24] LABS: C-REACTIVE PROTEIN < 5.0 mg/L (<10.0)
[2019-04-13 16:36] LABS: THYROID STIMULATING HORMONE 1.1 uIU/mL (0.47-4.68)
== END ==
LOC: OD 15:07
PROVIDERS: ATTEND Physician Assistant
DX: N95.1 Menopausal and female climacteric states (principal); Z79.899 Other long term (current) drug therapy; R94.6 Abnormal results of thyroid function studies; E72.11 Homocystinuria; E78.2 Mixed hyperlipidemia
CPT/HCPCS: 36415; 80053; 80061; 82306; 82626; 82670; 83090; 84402; 84403; 84443; 84481; 85025; 86140

== ENCOUNTER → 2020-01-24 | Outpatient (CLI) | payer BC ==
[2020-01-24 09:53] LABS: ABSOLUTE BASOPHILS # (AUTO) 0.1 10^3/uL (0.0-0.2); ABSOLUTE EOSINOPHILS # (AUTO) 0.6 10^3/uL (0.0-0.6); ABSOLUTE LYMPHOCYTES (AUTO) 1.6 10^3/uL (0.5-4.7); ABSOLUTE MONOCYTES (AUTO) 0.6 10^3/uL (0.1-1.4); ABSOLUTE NEUT (AUTO) 4.6 10^3/uL (1.7-8.2); BASOPHILS % (AUTO) 0.8 % (0-2); EOSINOPHILS % (AUTO) 7.8 % (0-6); HEMOGLOBIN 13.9 g/dL (12.0-15.5); MEAN CORPUSCULAR HEMOGLOBIN 32.9 pg (27.0-33.4); MEAN CORPUSCULAR VOLUME 97 fl (80-97); MONOCYTES % (AUTO) 7.7 % (3-13); PLATELET COUNT 217 10^3/uL (150-450); RED BLOOD COUNT 4.23 10^6/uL (3.72-5.28); RED CELL DISTRIBUTION WIDTH 13.7 % (11.5-14.0); SEGMENTED NEUTROPHILS % (AUTO) 61.7 % (42-78); TOTAL CELLS COUNTED % (AUTO) 100 %; WHITE BLOOD COUNT 7.4 10^3/uL (4.0-10.5)
[2020-01-24 10:37] LABS: ALKALINE PHOSPHATASE 41 U/L (38-126); ANION GAP 5 (5-19); ASPARTATE AMINO TRANSFERASE 30 U/L (14-36); BILIRUBIN,DIRECT 0.1 mg/dL (0.0-0.4); BILIRUBIN,TOTAL 0.9 mg/dL (0.2-1.3); BLOOD UREA NITROGEN 29 mg/dL (7-20); C-REACTIVE PROTEIN 21.4 mg/L (<10.0); CALCIUM 9.5 mg/dL (8.4-10.2); CARBON DIOXIDE 30 mmol/L (22-30); CHLORIDE 102 mmol/L (98-107); FREE T3 4.35 pg/mL (2.77-5.27); GLUCOSE 104 mg/dL (75-110); POTASSIUM 4.5 mmol/L (3.6-5.0); TOTAL PROTEIN 6.9 g/dL (6.3-8.2); TRIGLYCERIDES 81 mg/dL (<150)
[2020-01-24 10:39] LABS: FREE T4 (FREE THYROXINE) 1.21 ng/dL (0.78-2.19)
[2020-01-24 10:46] LABS: DIRECT LDL 109 mg/dL (<100)
[2020-01-24 10:51] LABS: THYROID STIMULATING HORMONE 1.65 uIU/mL (0.47-4.68)
[2020-01-25 08:48] LABS: INSULIN-LIKE GROWTH FACTOR I 97 ng/mL (57-202)
== END ==
LOC: OD 08:40
PROVIDERS: ATTEND Physician Assistant
DX: R94.6 Abnormal results of thyroid function studies (principal); N95.1 Menopausal and female climacteric states; E78.2 Mixed hyperlipidemia; E55.9 Vitamin D deficiency, unspecified; E72.11 Homocystinuria; D50.9 Iron deficiency anemia, unspecified
CPT/HCPCS: 36415; 80053; 80061; 82306; 82627; 82670; 82728; 83090; 84144; 84270; 84305; 84402; 84439; 84443; 84481; 85025; 86140; 86141

== ENCOUNTER 2020-01-26 09:41 | Day surgery (SDC) | payer BC ==
[~2020-01-26 09:41] MED LIST changes: -ALBUTEROL SULFATE 0.083% NEB 2.5 MG/3 ML AMPUL NEB ONE; +PROPOFOL INJ 200 MG/20 ML VIAL IV ONE
[2020-01-26] MEDS ORDERED: LIDOCAINE 2% INJ-PF (20 MG/ML) 10 ML AMPUL ONE (10:44)
[2020-01-26] MEDS ORDERED: LIDOCAINE 1% INJ-PF (10 MG/ML) 30 ML SDV ONE (10:44)
--- NOTE | 2020-01-26 11:29 | Operative Report ---
Operative Report DATE OF SURGERY: 01/26/20 Operative Report: The risk, benefits and alternatives of the procedure including the risk of bleeding, perforation requiring surgery were explained to the patient in detail and informed consent has been obtained. Patient is taken back to the endoscopy suite placed in left, lateral decubital position. Timeout was called. Propofol medication is administered. Rectal examination is done which did not reveal any masses, tears or fissures. An Olympus videoscope was introduced into the patient's rectum. Scope was then carefully advanced all the way to the cecum. The cecum was identified by the usual anatomical landmarks including the ileocecal valve as well as the appendiceal office. Photodocumentation is obtained. Scope is then sequentially pulled back via the various segments of the colon including the ascending colon, hepatic flexure, transverse colon, splenic flexure, descending colon and finally into the rectosigmoid portions of the colon. Retroflexion maneuver is performed. Prep is good. PREOPERATIVE DIAGNOSIS: Family history of colorectal cancer personal history of polyp POSTOPERATIVE DIAGNOSIS: Normal screening colonoscopy OPERATION: Diagnostic colonoscopy SURGEON: CLAY RICHADR ANESTHESIA: LMAC TISSUE REMOVED OR ALTERED: None. COMPLICATIONS: None. ESTIMATED BLOOD LOSS: None. INTRAOPERATIVE FINDINGS: As noted above. PROCEDURE: Patient tolerated the procedure well. No immediate postprocedure complications are noted. Patient is discharged in good condition. Discharge date 01/26/2020. Discharge diet: Regular. Discharge activity: Regular. 2 to 3-week follow-up to discuss findings. Patient is instructed to call the office or proceed to the emergency room should there be any further problems or questions. 3-year surveillance colonoscopy
[2020-01-26 11:49] VITALS: BP 115/86
== END 2020-01-26 11:37 | disposition home or self-care (01) ==
LOC: END 09:41
PROVIDERS: ATTEND Internal Medicine Gastroenterology
DX: Z12.11 Encounter for screening for malignant neoplasm of colon (principal); Z86.010 Personal history of colon polyps; Z20.828 Contact with and (suspected) exposure to other viral communicable diseases; Z80.0 Family history of malignant neoplasm of digestive organs; I10 Essential (primary) hypertension; J45.909 Unspecified asthma, uncomplicated; Z79.899 Other long term (current) drug therapy
CPT/HCPCS: 45378; U0003; J3490 ×2; J2704; C9803; 812; 87635